=== PATIENT | female | born 1965 | race Caucasian/White ===

== ENCOUNTER 2025-01-06 12:38 | Emergency (ER) | payer BC, SELFPAY ==
[2025-01-06 13:00] VITALS: BP 130/80
[2025-01-06 13:27] LABS: Hematocrit 45.7 % (37.0-47.0); Hemoglobin 15.1 g/dL (12.0-16.0); Mean Corp Hgb Conc. 33.0 g/dL (33.0-37.0); Mean Corpuscular Volume 86.4 fL (81.0-99.0); Nucleated Red Blood Cells % 0 %; Platelet Count 238 10^3/uL (130-400); Red Cell Dist. Width 12.4 % (11.5-14.5)
[2025-01-06 13:45] LABS: ALT (SGPT) 16 U/L (0-35); AST (SGOT) 20 U/L (14-36); Albumin 4.8 g/dl (3.5-5.0); Alkaline Phosphatase 105 U/L (38-126); Blood Urea Nitrogen 7 mg/dl (7-17); Calcium 9.5 mg/dl (8.4-10.2); Carbon Dioxide 21 mmol/L (22-30); Chloride 107 mmol/L (98-107); Glucose 96 mg/dl (70-99); Potassium 4.4 mmol/L (3.5-5.1); Sodium 137 mmol/L (135-145); Total Protein 7.6 g/dl (6.3-8.2); eGFR > 60.00
[2025-01-06 16:26] VITALS: BP 107/75
[2025-01-06] MEDS: TORADOL 30 MG IM (16:43)
--- NOTE | 2025-01-06 18:01 | ED.GENMED ---
History of Present Illness
General
Chief Complaint: Cold/Flu/URI Symptoms
Time Seen by Provider: 01/06/25 16:10
History of Present Illness
History of Present Illness:
59-year-old female felt off and unusually tired last week. 3 days ago she developed neck pain upon awakening. Neck pain is more with lateral movement but some with flexion. No photophobia no nausea or vomiting. No sore throat no cough congestion
no abdominal pain no urinary symptoms. No rash.
Past History
Past History
ED Past Medical History: None
ED Past Surgical History: Tonsilectomy
Social History
Tobacco: Smoker
Alcohol: Occasional
Drug: None
Living: with family
Employment: Employed
Family History
Family History: Other (nonsig.)
Phy Exam
Physical Exam
Physical Exam:
GENERAL: Alert and oriented in no apparent distress
EYE: Orbits normal.
NECK: Pain with lateral motion left greater than right. Some pain with flexion but improved with flexion versus lateral rotation
ENT: Pharynx without erythema
CARDIAC: Regular rate and rhythm without any obvious murmurs.
LUNGS: Clear breath sounds,normal
ABDOMEN: Soft, without focal tenderness or distention
NEUROLOGICAL: Alert and oriented , grossly non-focal. Gait normal. Patient dressed came out of the room to talk to me in absolutely no distress
SKIN: Warm and dry, no rash or lesion, no discoloration, skin intact.
MUSCULOSKELETAL: No edema,no deformity.Good color
PSYCH: Normal and appropriate interaction.
Sepsis
Sepsis Screening
Sepsis Assessment: Sepsis Ruled Out
Sepsis Screen
Sepsis Screen: Sepsis Ruled Out
Date: 01/07/25
Time: 12:20
Course
Orders/Labs/Results
Orders:
Orders
01/06/25 13:16
Complete Blood Count/With Diff Urgent
Comprehensive Metabolic Panel Urgent
01/06/25 16:28
CXR2 [CR Chest - 2 Views ] Urgent
Comment:
Reason For Exam: soft tissue
Soft Tissue, Neck [CR Soft Tissue Neck ] Urgent
Comment:
Reason For Exam: Neck pain fever
01/06/25 16:35
Ketorolac [Toradol] 30 mg IM NOW STA
01/06/25 16:41
Blood Parasites Urgent
LORENA Source: Blood/Venous
Specimen Description:
01/06/25 16:42
Ehrlichia/Anaplasma by PCR [S] Urgent
Lyme Progressive Urgent
[facility] Spotted Fever IgG&IgM [S] Urgent
01/06/25 18:01
Doxycycline [Vibramycin] 100 mg PO NOW STA
Abnormal Lab Results
01/06/25
13:16
WBC 11.6 H 10^3/uL
(4.8-10.8)
MPV 11.2 H fL
(7.4-10.4)
Absolute Neuts (auto) 9.0 H 10^3/uL
(1.4-6.5)
Absolute Monos (auto) 0.8 H 10^3/uL
(0.1-0.6)
Neutrophils % 77.4 H %
(42.2-75.2)
Lymphocytes % 15.1 L %
(20.5-51.1)
Carbon Dioxide 21 L mmol/L
(22-30)
Creatinine 0.5 L mg/dL
(0.6-1.0)
01/06/25 13:16
01/06/25 13:16
Vital Signs
Initial and Last Documented VS:
Initial Vital Signs
Temp Pulse Resp BP Pulse Ox
98.9 F 85 18 130/80 96
01/06/25 13:00 01/06/25 13:00 01/06/25 13:00 01/06/25 13:00 01/06/25 13:00
Last Documented Vital Signs
Temp Pulse Resp BP Pulse Ox
98.9 F 68 16 110/74 100
01/06/25 13:00 01/06/25 18:12 01/06/25 18:12 01/06/25 18:12 01/06/25 18:12
*Radiology
Radiology exam reviewed: preliminary read by ED provider (Negative) and radiology read reviewed (Negative)
*Pulse Oximetry
SaO2: 97
Oxygen Mode of Delivery: Room air
Patient hypoxic: no
*Critical Care Note
Total Time (30-74mins, 75-104mins- exclusive of procedures): Not Applicable
Update Note
Update Note:
Lab tests are all stable. Tickborne illness tests are pending. Very low suspicion for meningitis. Her neck pain is more with lateral movement. She is fully awake alert and oriented and in no distress. This could be Lyme disease or another
tickborne illness however. I discussed options with patient of awaiting testing versus coverage pending testing. She would prefer coverage at this time. Not unreasonable.
ED Attending Note
-
Portions of this chart may have been created with voice recognition software.� Occasional wrong word or��sound alike� substitutions may have occurred due to the inherent limitations of voice recognition software.
Discharge Plan
Departure
Patient Disposition: Home (Routine Discharge)
Date of Disposition: 01/06/25
Time of Disposition: 18:02
Patient with high blood pressure during this ER visit?: No
Discharge Problem:
Fever/, Viral versus tickborne illness
Instructions: Fever, Adult (DC)
Prescriptions:
New
doxycycline hyclate 100 mg capsule
100 mg PO BID 7 Days Qty: 14 0RF
doxycycline hyclate 100 mg capsule
100 mg PO BID 14 Days Qty: 28 0RF
No Action
cephalexin 500 MG capsule
500 mg PO BID Qty: 14 0RF
prednisone 10 MG tablet
10 mg PO .TAPER Qty: 45 0RF
Rx Instructions:
Take 50mg daily x2days, 40mg daily x3days, 30mg daily x3days, 20mg daily x3days, 10mg daily x3days
albuterol sulfate 8.5 GM HFA aerosol inhaler
2 puff inhalation TID Qty: 1 0RF
Referrals:
Juvenal Grossman DO [Family Provider, Family Practice] - Follow up in 2-3 days
Stand Alone Forms: Back to School
Activity Restrictions/Additional Instructions:
Stay well-hydrated/rest
Advil or Motrin for pain
I sent a prescription for 1 weeks of doxycycline to your pharmacy.
I gave you a prescription for 2 more weeks but only take this if one of the Lyme test is positive
Return sooner with increased neck pain high fever vomiting or any other concerning symptom
Interventions
Interventions:
*Risk Screen - Suicide Last Done: 01/06/25 13:06
*General Assessment Last Done: 01/06/25 13:06
*Neglect/Abuse Screening Last Done: 01/06/25 13:06
*ED- Fall Risk Assessment Last Done: 01/06/25 16:29
*ED COVID-19 Vaccine History Last Done: 01/06/25 13:06
*Nursing Disposition Last Done: 01/06/25 18:12
ED- Neurological Assessment Last Done: 01/06/25 16:29
ED- Pulmonary Assessment Last Done: 01/06/25 16:29
ED-Skin Assessment Last Done: 01/06/25 16:29
Discharge Date and Time
Discharge Date/Time: 01/06/25 18:12
Print Language: [email or web address]
[2025-01-06] MEDS: VIBRAMYCIN 100 MG PO (18:09)
[2025-01-06 18:12] VITALS: BP 110/74
== END 2025-01-06 18:12 | disposition home or self-care (01) ==
LOC: EMR 12:38
PROVIDERS: Emergency Medicine; EMERGENCY PHYSICIAN Emergency Medicine; FAMILY PHYSICIAN Family Medicine
DX: R50.9 Fever, unspecified (principal); M54.2 Cervicalgia; F17.200 Nicotine dependence, unspecified, uncomplicated
CPT/HCPCS: 96372; 99284; 70360; 71046; 80053; 85025; 86618; 86757; 87015; 87207; 87468; 87484; 87798

== ENCOUNTER → 2025-01-14 14:15 | Outpatient (REF) | payer BC, SELFPAY | LOC: HWRAD 14:15 | PROVIDERS: ATTENDING PHYSICIAN Family Medicine | DX: F17.210 Nicotine dependence, cigarettes, uncomplicated (principal) | CPT/HCPCS: 71271 ==

== ENCOUNTER → 2025-02-22 06:57 | Outpatient (REF) | payer BC, SELFPAY | LOC: HWWDC 06:57 | PROVIDERS: ATTENDING PHYSICIAN Family Medicine | DX: Z12.31 Encounter for screening mammogram for malignant neoplasm of breast (principal) | CPT/HCPCS: 77063; 77067 ==